=== PATIENT | male | born 1960 | race Caucasian/White ===

== ENCOUNTER 2021-08-03 13:02 | Emergency (ER) | payer MEDICAID ==
[~2021-08-03] VITALS: Ht 175.3 cm; Wt 99.8 kg
[2021-08-03 13:25] LABS: HEMATOCRIT 48.6 % (42.0-52.0); HEMOGLOBIN 15.5 gm/dL (14.0-18.0); MCH 27.4 pg (26.0-34.0); MCHC 31.9 g/dL (28.0-37.0); MCV 85.7 fL (80.0-100.0); NUCLEATED RBCS 0 /100WBC; PLATELET COUNT* 266 thou/uL (150-400); RBC 5.67 mil/uL (4.50-6.00); RDW-CV 16.2 % (10.5-14.5); WBC 13.3 thou/uL (4.0-11.0)
[2021-08-03 13:42] LABS: CALCIUM 8.8 mg/dL (8.5-10.1); CREATININE 1.5 mg/dL (0.6-1.3); POTASSIUM 3.6 mmol/L (3.5-5.1)
[2021-08-03 13:44] LABS: ABSOLUTE LYMPHOCYTES 4.1 thou/uL (0.8-5.3); ABSOLUTE MONOCYTES 0.8 thou/uL (0.0-1.2); ABSOLUTE NEUTROPHILS 8.4 thou/uL (1.6-8.1); METAMYELOCYTES 1 %; PLATELET ESTIMATE ADEQUATE
[2021-08-03 13:50] LABS: ALBUMIN 3.3 g/dL (3.4-5.0); MAGNESIUM 2.6 mg/dL (1.8-2.4); TOTAL BILIRUBIN 0.5 mg/dL (<0.1-1.0); TOTAL PROTEIN 7.2 g/dL (6.4-8.2)
[2021-08-03 16:01] VITALS: BP 87/58
--- NOTE | 2021-08-04 11:18 | EKG ---
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: : [id number] Requested By: Yunier Marino Order Number: [id number] MD: Yossi Perez Measurements Intervals [place] Rate: 91 P: 0 NH: 120 QRS: -59 QRSD: 97 T: -55 QT: 348 QTc: 429 Interpretive Statements Sinus rhythm Prominent inferior and right precordial ST segment fraction; ischemia or injury is suggested Artifact in lead(s) I,II,aVR,aVL,aVF No previous ECG available for comparison Electronically Signed On 08-04-2021 11:18:34 ELECTRIC VEHICLE ELECTRICIAN by Yossi Perez [email or web address] <ELECTRONICALLY SIGNED> By: Yossi Perez MD, [facility] 08/04/21 1118 1309 1309 Yossi Perez MD, [facility] /EPI
== END 2021-08-03 16:01 ==
LOC: M.ERS 13:02
PROVIDERS: Emergency Medicine Emergency Medical Services
DX: I71.01 Dissection of thoracic aorta (principal); F31.9 Bipolar disorder, unspecified; Z88.5 Allergy status to narcotic agent